=== PATIENT | female | born 1970 | race Caucasian/White ===

== ENCOUNTER 2016-12-26 12:15 | Emergency (ER) | payer OTHER ==
[2016-12-26] MEDS ORDERED: diphenhydrAMINE 50 MG/1 ML VIAL IVP ONE (12:27)
[2016-12-26] MEDS ORDERED: Sodium Chloride 0.9% 1,000 ML PRIMARY IV ONE (12:27)
[2016-12-26] MEDS ORDERED: KETOROLAC 15 MG/1 ML VIAL IVP ONE (12:27)
[2016-12-26] MEDS ORDERED: NORMAL SALINE 10 ML SYRINGE FLUSH IVP PRN (12:27)
[2016-12-26] MEDS ORDERED: Prochlorperazine Edisylate Inj 10mg/2ml vial IVP ONE (12:27)
[2016-12-26 12:41] LABS: BASOPHILS # (AUTO) 0.03 10*3/UL; BASOPHILS % (AUTO) 0.5 % (0-1); EOSINOPHILS # (AUTO) 0.45 10*3/UL; EOSINOPHILS % (AUTO) 8.1 % (0-8); HEMATOCRIT 42.1 % (37.0-47.0); HEMOGLOBIN 14.8 g/dL (12.0-16.0); LYMPHOCYTES # (AUTO) 1.42 10*3/uL; MEAN CORPUSCULAR HEMOGLOBIN 31.4 PG (27-31); MEAN CORPUSCULAR HGB CONC 35.2 g/dL (33-37); MEAN CORPUSCULAR VOLUME 89.2 FL (81-99); MEAN PLATELET VOLUME 10.4 FL (7.4-12.2); MONOCYTES # (AUTO) 0.32 10*3/UL (0.3-0.8); MONOCYTES % (AUTO) 5.8 % (5-15); NEUTROPHILS % (AUTO) 59.7 % (50-80); RED BLOOD COUNT 4.72 10^6/uL (4.20-5.40)
[2016-12-26 12:51] LABS: BLOOD UREA NITROGEN 15 mg/dL (7-22); BUN/CREATININE RATIO 16.66 (6-20); PLATELET MORPHOLOGY COMMENT NORMAL MORPHOLOGY (NORM); RBC MORPHOLOGY COMMENT NORMAL MORPHOLOGY (NORM); WBC MORPHOLOGY COMMENT NORMAL MORPHOLOGY (NORM)
[2016-12-26 12:52] LABS: C-REACTIVE PROTEIN 0.5 mg/dL (0.0-0.9); CALCIUM 9.2 mg/dL (8.7-10.7); EST GLOMERULAR FILTRATION > 60 (>60 ml/min/1.73m(2)); SERUM ALBUMIN 4.3 g/dL (3.5-4.8)
--- NOTE | 2016-12-26 13:01 | PDOC ---
Headache HPI - General Chief Complaint: Headache Stated Complaint: MIGRAINE, WORSENING SINCE YESTERDAY Date Seen by Provider: 12/26/16 Time Seen by Provider: 12:20 Source: POSITIVE: Patient Exam Limitations: POSITIVE: No limitations Nurse's Notes Reviewed & Considered: Yes - History of Present Illness Initial Comments: The patient is a 46-year-old female who presents to the emergency department with headache. She has a long-standing history of migraine headaches. She states that she had onset of left-sided headache, behind her left eye yesterday. She has some associated blurred vision. She has had associated nausea and vomiting as well as light and noise sensitivity. She denies numbness or weakness in her arms or legs. She states that her current headache is "exactly the same" as her previous migraines. She tried taking Imitrex and Compazine which is usually effective for her at home however she was unable to keep this medication down this time. She denies any recent illness or trauma and has no other associated symptoms. She has seen neurology both in [place] as well as in [place] in the past. She has had multiple imaging studies of her brain previously. - Patient Home Medications Home Medications: Home Medications Citalopram Hydrobromide [Celexa] 1 tab PO DAILY #30 tab 11/15/16 Diltiazem HCl [Cardizem La] 180 mg PO DAILY #30 tab 11/15/16 Estradiol [Estrace] 1 tab ORAL QD #30 tab 11/15/16 Levothyroxine Sodium [Levoxyl] 1 tab ORAL QD #30 tab 11/15/16 Sumatriptan Succinate [Imitrex] 100 mg PO BID PRN #9 tab 11/15/16 Ondansetron Odt [Zofran Odt] 8 mg PO Q6H PRN #10 tab.rapdis 12/26/16 Prochlorperazine Maleate [Compazine] 10 mg PO PRN PRN 12/26/16 - Patient Allergies Allergies/Adverse Reactions: Allergies Allergy/AdvReac Type Severity Reaction Status Date / Time soy Allergy Intermediate abdominal Verified 12/26/16 12:17 EJUVIA Allergy Severe RASH Uncoded 12/26/16 12:17 TAPE Allergy Severe RASH Uncoded 12/26/16 12:17 environmental Allergy Intermediate SWELLING Uncoded 12/26/16 12:17 Past Medical History - heen HEENT History: Denies History Cardiovascular History: Denies History Respiratory History: Other (please comment) Additional Respiratory History: SIGNIFICANT ENVIRONMENTAL ALLERGENS REQUIRING ALLERGY SHOTS Gastrointestinal History: Denies History Additional Gastrointestinal History: acute abdominal pain r/t surgery on 09/26/11 Genitourinary History: Denies History Endocrine History: Hypothyroidism Musculoskeletal History: Denies History Prosthesis or Implant: No Neurological History: Migraines Blood Disorders: Denies History Psychiatric History: Depression History of Sexually Transmitted Diseases: No Cancer History: Denies History History of MDRO: No History of Other Communicable Diseases: No Alcohol Use: None Substance Use Type: None Previous Surgical History: Yes Type / Date of Surgery: COMPLETE HYSTERECTOMY, RIGHT BREAST BIOPSY 1989, D&C 1999 Anesthesia Reactions: No Malignant Hyperthermia: No Significant Family History: No pertinent family hx Past Medical History Reviewed: Reviewed - No Changes ROS - Limitations ROS Limitations: No Limitations Constitution: DENIES: Chills, Fever Cardiovascular: REPORTS: Denies Cardiac Symptoms Respiratory: REPORTS: Denies Resp Symptoms Neurological: REPORTS: Headache. DENIES: Numbness, Weakness Gastrointestinal: REPORTS: Nausea, Vomitting. DENIES: Abdominal Pain Musculoskeletal: REPORTS: Denies MS Symptoms Eyes: REPORTS: Vision Changes (Some blurred vision in her peripheral visual albert which is common for her with her headaches), Other (Light sensitivity) ENT: REPORTS: Denies Symptoms Skin: DENIES: Rash Headache Exam - General Appearance General Appearance: POSITIVE: Alert, Cooperative, No Acute Distress, Other (She appears to be uncomfortable and prefers to keep her eyes closed) - HEENT Head / Face: POSITIVE: Atraumatic, No Facial Swelling Eyes: POSITIVE: Inspection Normal Ears: POSITIVE: Ears Normal Inspection Oropharynx: POSITIVE: External Inspection Nml - Neck Neck: POSITIVE: Normal Inspection - Respiratory / CVS Respiratory / CVS: POSITIVE: No Respiratory Distress, Heart Sounds Normal, Regular Rate/Rhythm, Breath Sounds Normal - Abdomen Abdomen: Soft: (All Quadrants), Denies Tenderness: (All Quadrants) - Extremities Extremity: Normal ROM: (All Extremities), Normal Inspection: (All Extremities) - Neuro / Psych Higher Functions: POSITIVE: Oriented x3, Normal Speech Cranial Nerves: POSITIVE: Normal As Tested Sensorimotor: POSITIVE: No Motor Deficits, No Sensory Deficits Headache Progress - Results Reviewed by me Lab Results Reviewed: Yes Lab Results:: Laboratory Results 12/26/16 Range/Units 12:33 WBC 5.53 (4.8-10.8) 10^3/uL RBC 4.72 (4.20-5.40) 10^6/uL Hgb 14.8 (12.0-16.0) g/dL Hct 42.1 (37.0-47.0) % MCV 89.2 (81-99) FL MCH 31.4 H (27-31) PG MCHC 35.2 (33-37) g/dL RDW Std Deviation 39.4 (39-50) fL RDW Coeff of Ron 12.1 (11.5-14.5) % Plt Count 256 (140-350) 10*3/uL MPV 10.4 (7.4-12.2) FL Immature Gran % (Auto) 0.2 (0-5) % Neut % (Auto) 59.7 (50-80) % Lymph % (Auto) 25.7 (10-50) % [place] % (Auto) 5.8 (5-15) % Eos % (Auto) 8.1 H (0-8) % Baso % (Auto) 0.5 (0-1) % Immature Gran # (Auto) 0.01 10*3/UL Neut # (Auto) 3.30 10*3/UL Lymph # (Auto) 1.42 10*3/uL [place] # (Auto) 0.32 (0.3-0.8) 10*3/UL Eos # (Auto) 0.45 10*3/UL Baso # (Auto) 0.03 10*3/UL WBC Morphology Comment Normal morphology (NORM) Plt Morphology Comment Normal morphology (NORM) RBC Morph Comment Normal morphology (NORM) Sodium 139 (135-145) meq/L Potassium 4.0 (3.8-5.2) meq/L Chloride 107 (98-112) meq/L Carbon Dioxide 22 L (23-33) meq/L Anion Gap 10 (5-20) BUN 15 (7-22) mg/dL Creatinine 0.9 (0.50-1.20) mg/dL Estimated GFR > 60 (>60 ml/min/1.73m(2)) BUN/Creatinine Ratio 16.66 (6-20) Glucose 96 (78-110) mg/dL Calculated Osmolality 288.0 (267-292) mOsm/kg Calcium 9.2 (8.7-10.7) mg/dL Total Bilirubin 0.8 (0.3-1.2) mg/dL AST 29 (8-39) IU/L ALT 30 (9-52) IU/L Alkaline Phosphatase 71 (38-126) IU/L C-Reactive Protein 0.5 (0.0-0.9) mg/dL Total Protein 8.2 H (6.1-8.0) g/dL Albumin 4.3 (3.5-4.8) g/dL Globulin 3.9 (2.50-4.10) g/dL Albumin/Globulin Ratio 1.10 L (1.3-2.0) mg/g - Patient's Progress MDM / ED Course: The patient presents to the emergency department with atypical migraine presentation for her. An IV was established and she received 1 L bolus of normal saline as well as Toradol 15 mg IV, Compazine 5 mg IV and Benadryl 25 mg IV. The patient's headache was significantly improved down to a 2 out of 10. She felt like she could go home and rest. She is advised to rest and push fluids. She was prescribed Zofran 8 mg sublingual as needed for nausea. She also has Imitrex which she can take as needed for recurrent headache. She is advised return to the emergency room if worsening headache, any worsening or change in symptoms. She will follow-up with primary care as needed. - Consult Counseled: POSITIVE: Patient, RE: Lab Results, RE: DX, RE: Need for F/U Patient Care Time - Estimated PCT Patient Care Time (In Minutes): 20 Vital Signs - Recent Vital Signs Vital Signs: Vital Signs (Last 8 hours) Temp Pulse Resp BP Pulse Ox 12/26/16 12:15 96.8 F 66 16 132/63 98 - VS Reviewed Vital Signs Reviewed: Yes Discharge Clinical Impression: Headache Discharge Disposition: Discharged to Home Condition: Stable Prescriptions / Orders: Ondansetron Odt [Zofran Odt] 8 mg PO Q6H PRN #10 tab.rapdis PRN Reason: Nausea / Vomiting Patient Instructions Given at Discharge: Acute Headache (ED) Additional Instructions: Rest and push fluids. You have been prescribed Zofran 8 mg every 6 hours as needed for nausea or vomiting. He may also continue the Imitrex as previously prescribed for recurrent headache. You also may use the Compazine as needed for headache/vomiting as well. Return to the emergency room if worsening headache, any worsening or change in symptoms. Follow-up with primary care as needed. Follow Up With: DRAGAN MORRELL [Primary Care Provider] -
[2016-12-26 13:54] VITALS: RESP 16; TEMP 96.8
== END 2016-12-26 13:32 | disposition home or self-care (01) ==
LOC: ER 12:15
DX: R51 Headache (principal); R11.2 Nausea with vomiting, unspecified; H53.8 Other visual disturbances
CPT/HCPCS: 80053; 85025; 86140; 96361; 96374; 96375; 99282; 99283; J1200; J0780; J1885